=== PATIENT | female | born 1985 | race Caucasian/White ===

== ENCOUNTER 2017-11-24 08:17 | Outpatient (CLI) | payer OTHER | END 2017-11-24 08:18 | disposition home or self-care (01) | LOC: BICULT 08:17 | PROVIDERS: ATTEND Family Medicine | DX: Z34.92 Encounter for supervision of normal pregnancy, unspecified, second trimester (principal); Z3A.19 19 weeks gestation of pregnancy | CPT/HCPCS: 76805 ==

== ENCOUNTER 2018-04-09 20:00 | Inpatient (IN) | payer OTHER ==
--- NOTE | 2018-04-09 18:34 | HP ---
HISTORY OF PRESENT ILLNESS: This is a 33-year-old Latin-Bahamian female at 40 weeks gestation with an EDC of 04/10/2018. Her course has been uncomplicated. Over the past week, she has had occasional contractions off and on. She is requesting induction at this time. Questionable larg e baby. PAST MEDICAL HISTORY: Unremarkable. PAST SURGICAL HISTORY: None. ALLERGIES: PENICILLIN. FAMILY HISTORY: Unremarkable. 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 She is nonsmoker, nondrinker. She does have one 9-year-old child. REVIEW OF SYSTEMS: As above. PHYSICAL EXAMINATION: VITAL SIGNS: Stable, afebrile, blood pressure 126/72. HEENT: Clear. HEART: Clear. LUNGS: Clear. ABDOMEN: Gravid possible large baby. Cervix 2 days prior fingertip, thick, high vertex. EXTREMITIES: No edema. LABORATORY DATA: GBS negative. History of HSV, one hour GCT normal. HIV negative, GC chlamydia neg ative, Pap smear normal, HPV positive O positive blood type. Thyroid normal. Hepatitis B negative, rubella immune. ASSESSMENT: 1. Term , rule out large baby. 2. Obesity. 3. History of HSV, on antiviral medications. No recent outbreaks. PLAN: 1. Admit for an elective induction with Cytotec and Pitocin. 2. Routine L&D orders. 3. Routine anesthesia orders.
[~2018-04-09 20:00] MED LIST: Bupivacaine HCl 0.5%/Epinephrine 1:200,000/PF 30 ml Vial ONE; ePHEDrine/0.9% NaCl/PF SYRINGE 50 mg/10 ml ONE
[2018-04-09] MEDS ORDERED: Misoprostol 200 MCG TAB PR PRN (22:04)
[2018-04-09] MEDS ORDERED: Ondansetron PF 4 MG/2 ML Vial IVP PRN (22:04)
[2018-04-09] MEDS ORDERED: Butorphanol Tartrate 1 MG/ML VIAL SLOW IVP PRN (22:04)
[2018-04-09] MEDS ORDERED: NS / Oxytocin 40 units/1000ml 1,000 ML IV PRN (22:04)
[2018-04-09] MEDS ORDERED: Ibuprofen 800 MG TAB PO PRN (22:04)
[2018-04-09] MEDS ORDERED: Lidocaine 1% (PF) 30 ML VIAL SC PRN (22:04)
[2018-04-09] MEDS ORDERED: Acetaminophen 500 MG TAB PO PRN (22:04)
[2018-04-09] MEDS ORDERED: NS w/ Oxytocin 10 units 500 ML IV SCH (22:04)
[2018-04-09] MEDS ORDERED: Promethazine HCl 25 MG/ML VIAL IM PRN (22:04)
[2018-04-09] MEDS ORDERED: Zolpidem Tartrate 5 MG TAB PO PRN (22:04)
[2018-04-09] MEDS ORDERED: HYDROcodone/Acetaminophen 5/325 mg Tablet PO PRN (22:04)
[2018-04-09 22:29] VITALS: BMI 48.5
[2018-04-09] MEDS: Lactated Ringer's 1,000 ML IV SCH (22:50)
[2018-04-09 23:05] LABS: Hemoglobin 10.9 g/dL (12.0-16.0); Mean Corpuscular HGB CONC 32.6 g/dL (32.0-36.0); Mean Corpuscular Hemoglobin 28.3 pg (27.0-31.0); Mean Corpuscular Volume 86.9 fL (78.0-98.0); Mean Platelet Volume 9.2 fL (7.4-10.4); Platelet Count 216 thou/uL (130-400); RBC Distribution Width 13.8 % (11.5-14.5); Red Blood Cell (RBC) Count 3.86 mill/uL (4.20-5.40); White Blood Cell (WBC) Count 10.8 thou/uL (4.8-10.8)
[2018-04-09] MEDS: Misoprostol 100 MCG TAB VAG SCH (23:20)
[2018-04-09 23:47] LABS: HBSAg Index 0.22 S/CO (0-0.99); Hep B Surf Ag Non-Reactive S/CO (NonReactive); Syphilis Antibody Nonreactive (Nonreactive); Syphilis Antibody Index 0.04 S/CO (<1.00 Non-Reactive)
[2018-04-10] MEDS ORDERED: Fentanyl 4 mcg/Bup 0.1% Cadd 100 ML ONE (05:07)
[2018-04-10] MEDS ORDERED: Naloxone HCl 0.4 mg/ml Vial IVP PRN ×2 (05:56)
[2018-04-10] MEDS ORDERED: ePHEDrine/0.9% NaCl/PF SYRINGE 50 mg/10 ml SLOW IVP PRN (05:56)
[2018-04-10] MEDS ORDERED: Ondansetron PF 4 MG/2 ML Vial IVP PRN (05:56)
[2018-04-10] MEDS ORDERED: Acetaminophen 325 MG TAB PO PRN (05:56)
[2018-04-10] MEDS ORDERED: Lactated Ringer's 500 ML IV PRN (05:56)
[2018-04-10] MEDS ORDERED: diphenhydrAMINE 50 MG/ML VIAL IVP PRN (05:56)
[2018-04-10] MEDS ORDERED: Eucerin (Mineral Oil/Petrolatum,White) 30 gm Jar TOP PRN (05:56)
[2018-04-10] MEDS ORDERED: Promethazine HCl 25 MG/ML VIAL IM PRN (05:56)
[2018-04-10] MEDS ORDERED: Fentanyl 4 mcg/Bupivacaine 0.1% Cassette 100 ML EPIDURAL SCH (06:00)
[2018-04-10] MEDS ORDERED: Communication Order-Pharmacy FS SCH (06:00)
[2018-04-10] MEDS: Lactated Ringer's 1,000 ML IV SCH (06:28)
[2018-04-10] MEDS ORDERED: Misoprostol 200 MCG TAB ONE ×2 (10:59→11:00)
[2018-04-10] MEDS: Misoprostol 100 MCG TAB VAG SCH (11:08)
--- NOTE | 2018-04-10 14:06 | OP ---
PREOPERATIVE DIAGNOSIS: Term . POSTOPERATIVE DIAGNOSES: 1. Term . 2. Cord around the neck x2. PROCEDURE: Spontaneous vaginal delivery with repair of secondary midline episiotomy. ANESTHESIA: Epidural. PROCEDURE IN DETAIL: This 33-year-old Latin-Romanian female G2, P1 taken to delivery room, complete and pushing. Prepped and draped sterilely. Delivered a baby girl with Apgars 8 at 1 minute, 9 at 5 minutes. Baby did breathe and cry vigorously upon delivery. The placenta delivered spontaneously in tact. Secondary midline episiotomy was repaired with 3-0 chromic. Estimated blood loss was 350 mL. Mother and baby did well. There was some small amount of bleeding immediately post-delivery and Cyt otec 800 rectally was given. Mom and baby doing well at this time.
[2018-04-10] MEDS ORDERED: Adacel (T-DAP) 0.5 ML VIAL IM ONE (14:55)
[2018-04-10] MEDS ORDERED: NS / Oxytocin 40 units/1000ml 1,000 ML IV SCH (14:55)
[2018-04-10] MEDS ORDERED: Benzocaine/Menthol 20-0.5% 60 ML CAN TOP PRN (14:55)
[2018-04-10] MEDS ORDERED: Bisacodyl 10 MG SUPP PR PRN (14:55)
[2018-04-10] MEDS ORDERED: Milk Of Magnesia 30 ML UDCUP PO PRN (14:55)
[2018-04-10] MEDS: Ferrous Sulfate 325 MG TAB PO SCH (16:56)
[2018-04-10] MEDS: HYDROcodone/Acetaminophen 5/325 mg Tablet PO PRN ×2 (17:03→23:39)
[2018-04-10] MEDS: Docusate Calcium (SURFAK) 240 MG CAP PO SCH ×2 (21:48→21:52)
[2018-04-10] MEDS: Ibuprofen 800 MG TAB PO SCH (21:48)
[2018-04-11] MEDS: HYDROcodone/Acetaminophen 5/325 mg Tablet PO PRN ×4 (04:20→18:45)
[2018-04-11] MEDS: Ibuprofen 800 MG TAB PO SCH ×3 (05:31→21:20)
[2018-04-11] MEDS: Ferrous Sulfate 325 MG TAB PO SCH ×2 (07:06→14:45)
[2018-04-11] MEDS: Lactated Ringer's 1,000 ML IV SCH (07:35)
[2018-04-11] MEDS: Misoprostol 100 MCG TAB VAG SCH (07:35)
[2018-04-11] MEDS: Docusate Calcium (SURFAK) 240 MG CAP PO SCH ×2 (08:44→21:20)
[2018-04-12] MEDS: HYDROcodone/Acetaminophen 5/325 mg Tablet PO PRN ×2 (01:12→11:45)
[2018-04-12] MEDS: Ibuprofen 800 MG TAB PO SCH ×2 (06:17→14:17)
[2018-04-12] MEDS: Ferrous Sulfate 325 MG TAB PO SCH (07:17)
[2018-04-12 08:17] VITALS: BP 86/56; TEMP 97.9
[2018-04-12] MEDS: Docusate Calcium (SURFAK) 240 MG CAP PO SCH (09:17)
== END 2018-04-12 15:35 | disposition home or self-care (01) | DRG 806 ==
LOC: L&D 21:37 → 3SW 04-10 14:54
PROVIDERS: ADMIT Family Medicine; ATTEND Family Medicine
PROC: 10E0XZZ Delivery of Products of Conception, External Approach (ICD-10-PCS; principal; 2018-04-10)
PROC: 3E033VJ Introduction of Other Hormone into Peripheral Vein, Percutaneous Approach (ICD-10-PCS; 2018-04-10)
PROC: 0W8NXZZ Division of Female Perineum, External Approach (ICD-10-PCS; 2018-04-10)
DX: O36.63X0 Maternal care for excessive fetal growth, third trimester, not applicable or unspecified (principal); O98.52 Other viral diseases complicating childbirth; Z37.0 Single live birth; O99.214 Obesity complicating childbirth; E66.9 Obesity, unspecified; Z3A.40 40 weeks gestation of pregnancy; B00.9 Herpesviral infection, unspecified
CPT/HCPCS: 36415; 51702; 85027; 86780; 86850; 86900; 86901; 87340; J0670

== ENCOUNTER 2018-05-12 01:11 | Emergency (ER) | payer OTHER ==
[2018-05-12] MEDS ORDERED: Bupivacaine 0.25% 10 ML VIAL ONE (01:46)
== END 2018-05-12 02:07 | disposition home or self-care (01) ==
LOC: ERS 01:11
DX: K04.7 Periapical abscess without sinus (principal); F41.9 Anxiety disorder, unspecified
CPT/HCPCS: S0020

== ENCOUNTER 2018-05-12 11:57 | Emergency (ER) | payer OTHER ==
[2018-05-12] MEDS ORDERED: Ketorolac Tromethamine 30 MG/ML VIAL ONE (12:26)
[2018-05-12] MEDS ORDERED: Clindamycin/D5W 900 mg/50 ml Premix Bag ONE (12:29)
[2018-05-12 13:36] LABS: #Eosinphils 0.1 thou/uL (0.0-0.7); #Lymphocytes 1.2 thou/uL (1.20-3.40); #Monocytes 0.7 thou/uL (0.11-0.59); #Neutrophils 10.9 thou/uL (1.40-6.50); %Basophils 0.3 % (0.0-1.0); %Eosinophils 0.8 % (0.0-10.0); %Lymphocytes 9.3 % (21.0-51.0); %Monocytes 5.7 % (0.0-10.0); %Neutrophils 83.9 % (42.0-75.0); Hemoglobin 12.1 g/dL (12.0-16.0); Mean Corpuscular Hemoglobin 28.6 pg (27.0-31.0); Mean Corpuscular Volume 86.8 fL (78.0-98.0); Mean Platelet Volume 9.2 fL (7.4-10.4); Platelet Count 235 thou/uL (130-400); RBC Distribution Width 13.3 % (11.5-14.5); Red Blood Cell (RBC) Count 4.22 mill/uL (4.20-5.40)
[2018-05-12 13:51] LABS: ALT (SGPT) 12 U/L (8-55); AST (SGOT) 15 U/L (5-34); Albumin 3.9 g/dL (3.5-5.0); Alkaline Phosphatase 126 U/L (40-150); Anion Gap 11 mmol/L (10-20); BUN (Urea Nitrogen) 8 mg/dL (7.0-18.7); Bilirubin, Total 0.5 mg/dL (0.2-1.2); Calc. Creatinine Clearance 0 mL/min (70-130); Carbon Dioxide 23 mmol/L (22-29); Chloride 107 mmol/L (98-107); Estimated GFR-MDRD 90; Globulin 3.9 g/dL (2.4-3.5); Glucose 96 mg/dL (70-105); Potassium 4.1 mmol/L (3.5-5.1); Protein, Total 7.8 g/dL (6.0-8.3); Sodium 137 mmol/L (136-145)
[2018-05-12] MEDS ORDERED: Acetaminophen 500 MG TAB ONE (14:45)
== END 2018-05-12 16:33 | disposition home or self-care (01) ==
LOC: ERS 11:57
DX: K08.89 Other specified disorders of teeth and supporting structures (principal); R50.9 Fever, unspecified; F41.9 Anxiety disorder, unspecified; Z79.899 Other long term (current) drug therapy
CPT/HCPCS: 64400; 80053; 85025; 96361; 96365; 96375; J1885; J3490; S0020

== ENCOUNTER 2018-05-14 05:46 | Inpatient (IN) | payer OTHER ==
[2018-05-14 06:34] LABS: Mean Corpuscular HGB CONC 31.6 g/dL (32.0-36.0); Mean Corpuscular Hemoglobin 27.8 pg (27.0-31.0); Mean Corpuscular Volume 87.9 fL (78.0-98.0); Mean Platelet Volume 8.7 fL (7.4-10.4); Platelet Count 206 thou/uL (130-400); RBC Distribution Width 13.5 % (11.5-14.5); Red Blood Cell (RBC) Count 3.97 mill/uL (4.20-5.40); White Blood Cell (WBC) Count 22.7 thou/uL (4.8-10.8)
[2018-05-14] MEDS ORDERED: Clindamycin/D5W 600 mg/50 ml Premix Bag ONE (06:52)
[2018-05-14 07:00] LABS: Band 24 % (5-11); Lymphocytes 6 % (21-51); MDiff Complete? YES; Monocytes 4 % (0-10); Neutrophil 66 % (42-75)
[2018-05-14 07:24] LABS: ALT (SGPT) 11 U/L (8-55); AST (SGOT) 16 U/L (5-34); Albumin 3.5 g/dL (3.5-5.0); Alkaline Phosphatase 130 U/L (40-150); Anion Gap 17 mmol/L (10-20); BUN (Urea Nitrogen) 7 mg/dL (7.0-18.7); Bilirubin, Total 0.6 mg/dL (0.2-1.2); Calc. Creatinine Clearance 0 mL/min (70-130); Carbon Dioxide 18 mmol/L (22-29); Chloride 106 mmol/L (98-107); Estimated GFR-MDRD 89; Globulin 3.9 g/dL (2.4-3.5); Glucose 80 mg/dL (70-105); Potassium 3.7 mmol/L (3.5-5.1); Protein, Total 7.4 g/dL (6.0-8.3); Sodium 137 mmol/L (136-145)
--- NOTE | 2018-05-14 07:52 | RAD ---
PORTABLE UPRIGHT FRONTAL CHEST RADIOGRAPH: Date: 05/14/18 COMPARISON: None. HISTORY: Chest pain. FINDINGS: There is mild increased linear density in both lung bases, left greater than right, suggesting volume loss or, less likely, infiltrate. No pneumothorax, focal consolidation, alveolar edema, or large vol ume pleural effusion. IMPRESSION: Mild increased linear density in bilateral lung bases as above. POS: [facility]
[2018-05-14] MEDS ORDERED: Morphine 4 MG/ML VIAL ONE (07:53)
[2018-05-14] MEDS ORDERED: Dexamethasone 10 MG/ML VIAL ONE (08:13)
[2018-05-14 08:22] LABS: Bilirubin Small (Negative); Blood, Urine Small (Negative); Clarity CLOUDY (Clear); Glucose, Urine (Dipstick) Negative (Negative); Leukocyte Negative (Negative); Nitrite Negative (Negative); Protein, Urine (Dipstick) 100 mg/dL (Neg-Trace); Specific Gravity, Urine 1.026 (1.002-1.036); pH, Urine 5.5 (5.0-9.0)
[2018-05-14 08:24] LABS: Bacteria/HPF 1+ HPF (None Seen); Hyaline Casts/LPF 7-10 HYALINE CAST LPF (0-3 Hyaline); Pathc Cast-AUWi Flag 1.45 (0-2.49)
[2018-05-14 08:34] LABS: Pregnancy Test - Urine (BHCG) Negative (Negative); Specific Gravity 1.026 (1.002-1.036)
[2018-05-14 08:35] LABS: Pregu Control Background? CLEAR/WHITE (CLR/WHITE); Pregu Control Bar Appear? YES (CONTROL BAR)
--- NOTE | 2018-05-14 10:05 | CT ---
CT NECK WITH IV CONTRAST: Date: 05/14/18 COMPARISON: None. HISTORY: Dental pain and facial swelling. TECHNIQUE: Axial CT imaging is obtained at 2.5 mm intervals from skull base through lung apices with IV contrast . Coronal and sagittal reformatted imaging obtained. FINDINGS: The imaged paranasal sinuses and mastoid air cells are well aerated. Mild mucosal thickening of the a lveolar recess of bilateral maxillary sinuses. The retroantral fat and the parapharyngeal fat appears clear bilaterally. The parotid gland and submandibular gland on the left appear unremarkable. There is mild edematous change involving the parotid gland on the left, particularly inferiorly. The submandibular gland appears abnormal on the right in that it is enlarged and heterogeneous with i nternal striated areas of hypodensity. In addition, inferior to and medial to the submandibular gland on the right is linear hypodensities suggesting developing phlegmon/abscess, which abuts the anterio r right lateral aspect of the hyoid bone. There is diffuse thickening of the platysma inferiorly, lef t greater than right, with marked inflammatory fat stranding of the subcutaneous fat in the submandib ular region, right greater than left, both superficial and deep to the platysma. Evaluation of the oral cavity is limited on the basis of streak artifact from dental amalgam. No disc rete sialolith noted. There is no enlargement of either palatine tonsil. The epiglottis demonstrates mild edematous change along its right lateral portion. There is inflammatory change in the preepiglottic fat. There is jessi a of the mucosa anteriorly, right laterally, and posteriorly at the axial level of the hyoid bone, co nsistent with supraglottic extensive inflammatory change. There is inflammatory fluid extending into the carotid space on the right from the axial level of the hyoid bone through the axial level of the thyroid gland, and there is abnormal retropharyngeal fluid which extends from the C2 level through th e C5-6 level, which could represent a developing retropharyngeal abscess. The thyroid gland itself is unremarkable. There is stranding of the fat within the mediastinum just inferior to the thyroid glan d, which may represent developing mediastinitis. There is inflammatory change involving the strap mus cles bilaterally. The visualized lung apices are unremarkable. The osseous structures demonstrate no discrete lytic or blastic bone lesion. The vascular structures appear patent. Multiple mildly enlarged lymph nodes are seen throughout the neck bilaterally, including Level II and Level V. There is lucency involving the second from the posterior most left mandibular molar. In addition, the posterior most right mandibular tooth demonstrates a prominent dental caries and the posterior two r ight mandibular teeth demonstrate periapical abscess formation. IMPRESSION: Marked inflammatory change noted centered in the region of the submandibular gland with superior, med ial, and inferior extension. There is inflammatory change which involves the fat in the submandibular region, right greater than left, deep and superficial to the platysma, with probably multiloculated submandibular abscess. There is extension into the supraglottic airway with narrowing of the supraglo ttic airway at the axial level of the hyoid bone. This extends into the carotid space on the right, t he retropharyngeal space, and probably the mediastinum, concerning for infection extending into these regions. Exact etiology is uncertain. This may be odontogenic in nature. Follow up CT advised following treatment to document resolution. Results were called to Dr. Donald at 0925 hours on 05/14/18. CODE CR. POS: [facility]
[2018-05-14] MEDS ORDERED: ISOVUE-370 76%-LOCM 1 ML ONE (10:47)
[2018-05-14] MEDS ORDERED: Clindamycin/D5W 900 MG in Premix Bag 1 BAG IVPB SCH ×2 (12:00→14:00)
[2018-05-14] MEDS ORDERED: Succinylcholine Chloride 20 MG/ML 10 ml SYRINGE FS ONE (12:07)
[2018-05-14] MEDS ORDERED: PHENYLEPHRINE-NS 100 MCG/ML 10 ML SYRINGE ONE (12:07)
[2018-05-14] MEDS ORDERED: Lidocaine 1% PF 5 ML VIAL ONE (12:07)
[2018-05-14] MEDS ORDERED: Dexamethasone 20 MG/5 ML VIAL ONE (12:07)
[2018-05-14] MEDS ORDERED: Glycopyrrolate 0.2 MG/ML 5 ML SYRINGE ONE (12:07)
[2018-05-14] MEDS ORDERED: Ondansetron PF 4 MG/2 ML Vial ONE (12:07)
[2018-05-14] MEDS ORDERED: PROPOFOL 200 MG/20 ML VIAL ONE (12:07)
[2018-05-14] MEDS ORDERED: Ondansetron PF 4 MG/2 ML Vial IVP PRN (12:27)
[2018-05-14] MEDS ORDERED: VANCOMYCIN IVPB PRN (12:58)
[2018-05-14] MEDS: Sodium Chloride 0.9% 1,000 ML IV SCH ×2 (15:02→16:07)
[2018-05-14] MEDS: Vancomycin HCl 1.5 GM in Sodium Chloride 0.9% 250 ML 300 ML IVPB SCH (16:58)
[2018-05-14] MEDS ORDERED: Fentanyl 100 MCG/2 ML VIAL ONE ×4 (18:39→21:24)
[2018-05-14] MEDS ORDERED: Midazolam HCl 2 mg/2 ml Vial ONE (18:39)
[2018-05-14] MEDS ORDERED: Hydrocortisone 1% Cream 30 GM TUBE ONE (18:43)
[2018-05-14] MEDS ORDERED: Lidocaine 1% w/Epinephrine 1:100K 30 ML VIAL ONE (18:43)
[2018-05-14] MEDS ORDERED: Chlorhexidine Gluconate 15 ML UDCUP SSP ONE (18:43)
[2018-05-14] MEDS ORDERED: Oxymetazoline HCl 0.05% ( 15 ML ) ONE (19:13)
[2018-05-14] MEDS ORDERED: Lidocaine 4% Topical Sol 50 ML BOT ONE (19:13)
[2018-05-14] MEDS ORDERED: SUGAMMADEX SODIUM 200 MG/2 ML VIAL ONE (20:03)
[2018-05-14] MEDS ORDERED: Promethazine HCl 25 MG/ML VIAL IM PRN (20:19)
[2018-05-14] MEDS ORDERED: Ondansetron HCl/PF 4 MG/2 ML Vial IVP PRN (20:19)
[2018-05-14] MEDS ORDERED: Promethazine HCl 25 MG/ML VIAL SLOW IVP PRN (20:19)
--- NOTE | 2018-05-14 20:41 | HP ---
HISTORY OF PRESENT ILLNESS: This is a 33-year-old female, G2, P2, who presents with neck swelling. The patient was doing well until Friday when she developed a sore throat. She then presented to the ER on Friday and was given antibiotics and told to come back if things became worse. She then began developing neck swelling which became progressively worse and quite extensive. She was developing fever of approximately 102. At this time, she is in severe pain with marked swelling of her neck. Dr. Mccarty and Dr. Mace had been called. PAST MEDICAL HISTORY: Unremarkable. PAST SURGICAL HISTORY: None. She has had two normal vaginal deliveries. FAMILY HISTORY: Unremarkable for any other diabetes, cancer, or heart disease. SOCIAL HISTORY: She is single. 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 She has a 9-year-old and a baby, who I believe is approximately 1-month-old. She does not smoke. She does not drink. MEDICATIONS: Vitamins daily. ALLERGIES: PENICILLIN. REVIEW OF SYSTEMS: As above. PHYSICAL EXAMINATION: VITAL SIGNS: Temperature 103, 100.2, blood pressure 110/70, heart rate 103. GENERAL: The patient is in moderate distress from the neck swelling. HEENT: Difficult oral exam due to swelling and decreased ability to open her mouth. TMs are clear. NECK: Quite swollen with some marked tenderness. HEART: Regular rate and rhythm. No murmurs noted. LUNGS: Clear. ABDOMEN: Soft, nontender. EXTREMITIES: No edema. LABORATORY DATA: White count 22.7, H and H 11 and 34, platelets 206, sodium 137, potassium 3.7, lactic acid 1.5. Urine with 4+ ketones, specific gravity 1.026. CT of the neck shows marked swelling with abscess, unsure if it originates from the submandibular gland or dental. ASSESSMENT: 1. Neck abscess. Rule out submandibular origin versus dental. 2. One month status post vaginal delivery. PLAN: 1. Dr. Mccarty and Dr. Mace consulted. 2. N.p.o. 3. Clindamycin and vancomycin started. 4. Admit to Tele. 5. Pain control. 6. We will continue to follow. Job ID: [id number]
[2018-05-14] MEDS ORDERED: Vancomycin HCl 1 GM in Premix Bag 1 BAG IVPB SCH (21:00)
--- NOTE | 2018-05-14 21:22 | CON ---
DATE OF CONSULTATION: TYPE OF CONSULTATION: Inpatient consultation. CHIEF COMPLAINT: Facial pain, swelling. HISTORY OF PRESENT ILLNESS: This is a 33-year-old female with a several month history of intermittent right jaw pain and swelling, has significant worsening of this pain and swelling over the last 2 days, failed a previous outpatient antibiotic therapy. The patient has been complaining of tooth pain. She does complain of some difficulty swallowing. No difficulty breathing. Pain is mostly on the right of her jaw and neck and right throat. PAST MEDICAL HISTORY: None. PAST SURGICAL HISTORY: The patient gave on April 10. SOCIAL HISTORY: The patient denies alcohol, tobacco, drug abuse. She works at [email or web address]. PHYSICAL EXAMINATION: VITAL SIGNS: Blood pressure is 97/60, pulse is 92, respiratory rate is 12. She is saturating 99% on room air currently. T-max is 103. GENERAL: The patient is awake, alert, and oriented x3. She is no acute distress, but does appear quite uncomfortable due to the pain of her jaw and neck. HEENT: She has good oral opening. She has a decayed tooth #31, which is tender to palpation. She also has an impacted tooth #32 distal to that. She also has a tenderness to palpation in the floor of the mouth on the right side as well as the right neck extending to the midline and some over into the left. The neck is not fluctuant. It is firm, woody. There is no real elevation of the tongue or floor of mouth. The oropharynx does appear clear. I do not see any gross uvular deviation. Her oral hygiene is poor. LABORATORY DATA: White count 20,000. CT scan of the neck with IV contrast shows possible phlegmon in the right deep neck spaces with some airway shift to the left. She has a necrotic tooth #31 with a periapical radiolucency in that area, which breaks through the lingual cortical plate. She also has another periapical radiolucency around tooth #18. ASSESSMENT: 1. A 33-year-old female with deep neck space abscess, mostly likely from tooth #31, dental caries and abscess. 2. Sepsis. PLAN: The patient is being admitted to the Family Medicine Service. They are currently on vancomycin and clindamycin, which we would like to continue. IV fluids per primary team as well. I will plan on taking the patient to the OR this evening for removal of tooth #31 and any other indicated teeth as well as incision and drainage of deep neck spaces. Job ID: [id number]
[2018-05-14] MEDS: Clindamycin/D5W 900 MG in Premix Bag 1 BAG IVPB SCH (21:55)
[2018-05-14] MEDS: Famotidine/PF 20 mg/2ml Vial SLOW IVP SCH (22:27)
[2018-05-14] MEDS: Morphine 4 MG/ML VIAL SLOW IVP PRN (22:28)
[2018-05-15] MEDS: Vancomycin HCl 1.5 GM in Sodium Chloride 0.9% 250 ML 300 ML IVPB SCH ×4 (00:12→16:50)
[2018-05-15] MEDS: Sodium Chloride 0.9% 1,000 ML IV SCH ×3 (02:15→11:37)
[2018-05-15] MEDS: Clindamycin/D5W 900 MG in Premix Bag 1 BAG IVPB SCH ×4 (02:20→20:13)
[2018-05-15] MEDS: Morphine 4 MG/ML VIAL SLOW IVP PRN ×2 (02:31→08:15)
[2018-05-15 06:33] LABS: Anion Gap 12 mmol/L (10-20); BUN (Urea Nitrogen) 9 mg/dL (7.0-18.7); Calc. Creatinine Clearance 224 mL/min (70-130); Calcium 8.4 mg/dL (7.8-10.44); Carbon Dioxide 15 mmol/L (22-29); Chloride 114 mmol/L (98-107); Estimated GFR-MDRD Greater than 90; Glucose 122 mg/dL (70-105); Sodium 137 mmol/L (136-145)
[2018-05-15 06:51] LABS: Band 39 % (5-11); Hemoglobin 9.5 g/dL (12.0-16.0); Lymphocytes 4 % (21-51); MDiff Complete? YES; Mean Corpuscular Hemoglobin 27.5 pg (27.0-31.0); Mean Corpuscular Volume 88.4 fL (78.0-98.0); Mean Platelet Volume 8.8 fL (7.4-10.4); Neutrophil 57 % (42-75); Platelet Count 226 thou/uL (130-400); RBC Distribution Width 13.5 % (11.5-14.5); Red Blood Cell (RBC) Count 3.44 mill/uL (4.20-5.40); White Blood Cell (WBC) Count 20.5 thou/uL (4.8-10.8)
[2018-05-15] MEDS: Famotidine/PF 20 mg/2ml Vial SLOW IVP SCH (08:15)
--- NOTE | 2018-05-15 11:34 | OP ---
DATE OF PROCEDURE: 05/14/2018 PREOPERATIVE DIAGNOSES: Necrotic decayed teeth #31, #32 and #18. Right submandibular abscess, right sublingual abscess and right vestibular space abscess associated with teeth #31 and #32. PROCEDURES PERFORMED: Incision and drainage of right submandibular abscess, intraoral and extraoral; right sublingual abscess, intraoral and extraoral; right vestibular space abscess, intraoral. Simple extraction of teeth #31 and #32. Surgical removal of tooth #18. COMPLICATIONS: None. DRAINS: A 1/2-inch Lashanda drain was placed from the right submandibular area of the neck through the right submandibular space, the sublingual space and into the oral cavity. It was secured with a 2-0 Prolene stitch at the skin. This drain was through and through. ESTIMATED BLOOD LOSS: 20 mL. ANESTHESIA: General endotracheal anesthesia with nasal FABIO. COMPLICATIONS: None. SPECIMENS: Purulent culture from submandibular space was sent for gram stain culture. BRIEF PATIENT HISTORY AND PROCEDURE IN DETAIL: This is a 33-year-old female with a several week history of swelling, worsening over the last 2 days, admitted for sepsis and the above noted abscesses, taken to the operating room, prepped and draped in sterile fashion. A nasal tube was placed prior. Throat pack was placed. Oropharynx was suctioned. Mouth irrigated with normal saline. Teeth #31 and #32 were removed with forceps extraction. Pus was noted from the sockets. Sockets were curetted. Full-thickness mucoperiosteal flap was made with sulcular degloving incision on the buccal and lingual of #31 and #32. Pus in the sublingual space was found as well as in the right vestibular space. These areas were thoroughly irrigated. Incision was then made approximately 2 cm below the right inferior border of the mandible and the neck. Incision with a 15 blade through skin, subcutaneous tissue, and platysma with blunt dissection into the superficial layer of deep cervical fascia and into the submandibular space with jerry purulent discharge. A through and through drain was then placed, a 1/2-inch Lashanda from the right submandibular sublingual area exiting the neck and going through and through into the oral cavity. It was secured in place with a 2-0 Prolene to the skin. Areas were thoroughly irrigated. Bite block was then changed from the left side to the right side. Full-thickness mucoperiosteal flap was made around tooth #18. Tooth was drilled, sectioned, elevated, curetted of large granuloma, normal saline and 4-0 chromic closure. The patient tolerated the procedure well. Job ID: [id number]
--- NOTE | 2018-05-15 12:56 | PQF ---
CLINICAL DOCUMENTATION IMPROVEMENT CLARIFICATION FORM: ICD-10 Updated PLEASE DO AN ADDENDUM TO THE PROGRESS NOTE WITH ANY DOCUMENTATION UPDATES OR ADDITIONS AND CARRY THROUGH TO DC SUMMARY. THANK YOU. DATE: 05/15/18 ATTN: DR. REEVES Please exercise your independent, professional judgment in responding to the clarification form. Clinical indicators are provided on the bottom of this form for your review Please check appropriate box(s) to clarify if the following diagnosis has been ruled in or ruled out: SEPSIS [ ] Ruled in diagnosis [ ] Continue to treat [ ] Resolved [ ] Ruled out diagnosis [ ] Cannot rule out diagnosis [ ] Other diagnosis [ ] Unable to determine In addition, please specify: Present on Admission (POA): [ ] Yes [ ] No [ ] Unable to determine For continuity of documentation, please document condition throughout progress notes and discharge summary. Thank You. CLINICAL INDICATORS - SIGNS / SYMPTOMS / LABS ER NOTE: "SEPSIS" OP NOTE (ORAL SURGERY): "ADMITTED FOR SEPSIS" BP 92/63 PULSE 125 RR 28 TEMP 103.1 WBC 22.7 BANDS 39 RISKS: ORAL ABSCESSES TREATMENT: IV CLINDAMYCIN (ER) IV VANCOMYCIN (ER) IV FLUIDS (ER) ENT CONSULT ORAL SURGERY CONSULT IMCU MONITORING URINE AND BLOOD CULTURES BACTERIAL CULTURES OF NECK ABSCESS EXTRACTION OF TEETH I&D OF ORAL ABSCESSES (This form is maintained as a part of the permanent medical record) 2014 [employer]. All Rights Reserved [email or web address] [email or web address] Office: [phone] [facility]
--- NOTE | 2018-05-15 14:02 | PRG ---
DATE OF SERVICE: 05/15/2018 SUBJECTIVE: The patient is feeling a lot better. Her fever has resolved. She only complains of postop pain. She is tolerating some clear liquids. OBJECTIVE: VITAL SIGNS: Temperature 99.8, pulse 65, respiration 16, pulse ox 94, blood pressure 146/59. HEENT: Neck swelling has significantly reduced. Drain from the right jaw is still present. The patient looks so much better this morning. HEART: Regular rate and rhythm. LUNGS: Clear. LABORATORY DATA: White count 22.7 down to 20.5, H and H 9.5 and 30.5, CO2 is 15, creatinine 0.65, glucose 122. ASSESSMENT: 1. Postoperative day #1, status post removal of several teeth. 2. Incision and drainage of right submandibular, sublingual, and vestibular spaces with placement of a drain. Cultures pending. Bacterial urine cultures are pending. PLAN: 1. Continue postoperative day care. 2. Increase activity. 3. May hold Lovenox for another day. 4. Continue IV vancomycin and clindamycin. Job ID: [id number]
[2018-05-15 15:49] LABS: Vancomycin, Trough 19.4 ug/mL
[2018-05-15] MEDS: Chlorhexidine Gluconate 15 ML UDCUP SSP SCH (22:08)
[2018-05-16] MEDS: Vancomycin HCl 1.25 GM in Sodium Chloride 0.9% 250 ML 250 ML IVPB SCH ×3 (00:24→15:45)
[2018-05-16] MEDS: Morphine 2 MG/ML SYRINGE SLOW IVP PRN ×4 (00:31→18:07)
--- NOTE | 2018-05-16 00:54 | CON ---
DATE OF CONSULTATION: 05/15/2018 SERVICE: Pulmonary Medicine. HISTORY OF PRESENT ILLNESS: The patient is a 33-year-old female with past medical history significant for essentially nothing. She presented to the hospital with pain and swelling in the right jaw. She had some difficulty breathing that was associated with the obstruction. She was also having some high fevers. She presented to the emergency department and was discovered to have a submandibular abscess. She underwent surgical intervention. She has a drain in place. She is no longer having any fevers or chills or breathing difficulties. She was brought down to the ICU last night because her blood pressures were quite soft. She ended up getting 4 L of fluid. After the fluid resuscitation, her blood pressures firmed up very nicely. She is tolerating p.o. at this time. There has been no interval change to her condition. PAST MEDICAL HISTORY: None. PAST SURGICAL HISTORY: I and D of right submandibular abscess and extraction of tooth #31, #32, and #18. FAMILY HISTORY: Noncontributory. SOCIAL HISTORY: Negative for alcohol, tobacco, or illicit drug use. She has no exposure to chemicals, dust, asbestos, or tuberculosis. ALLERGIES: PENICILLIN. MEDICATIONS: List of her inpatient medications was reviewed. No specific updates were made. REVIEW OF SYSTEMS: General, head, ears, eyes, nose, throat, cardiovascular, respiratory, genitourinary, musculoskeletal, neurologic, and skin are negative except as mentioned in the HPI. PHYSICAL EXAMINATION: VITAL SIGNS: Afebrile with a T-max of 99.8, pulse 61, blood pressure 118/54, respirations 17, saturation 94% on room air. GENERAL: The patient is awake, alert, in no apparent distress. LUNGS: Excellent air entry. There is no prolonged expiratory phase or wheezing present. Dependently, minimal crackles are present. HEART: Normal rate and regular. ABDOMEN: Soft, nontender, and nondistended. Bowel sounds are positive. MUSCULOSKELETAL: No cyanosis or clubbing. There is trace pitting in the bilateral lower extremities. NEUROLOGIC: Grossly nonfocal. LABORATORY DATA: WBC 20.5, hemoglobin 9.5, and platelets 226,000, band count is up trending to 39%. Basic metabolic profile is unremarkable. Liver function studies are unremarkable. Lactate is negative. Urinalysis is positive for ketones and small amount of blood. She does not have any glycosuria. There is minimal proteinuria present. Vancomycin trough is 19.4. All culture results are negative to date. IMAGING DATA: Soft-tissue CT of the neck demonstrates a large right-sided submandibular abscess. Chest x-ray demonstrates no acute cardiopulmonary abnormality. ASSESSMENT: 1. Submandibular abscess with extension into the retropharyngeal space, possibly involving mediastinum. 2. Sepsis without end-organ damage. DISCUSSION AND PLAN: The patient is not having any difficulty swallowing right now. Additionally, she has no problems with shortness of breath. She does not have anything that even remotely sounds like stridor. As such, we will transition her out of the ICU to the medical unit. If she has any significant chest discomfort , clinical correlation for mediastinitis may need to be considered. Otherwise, supportive care including antibiotics will be continued. We will transition her out of the ICU to the surgical unit. Once there, she will not have additional requirements for pulmonary or critical care opinion, and I will sign off. Please call with additional questions or concerns. 70 minutes have been devoted to this patient in various activities. I personally reviewed all imaging studies and laboratory data noted within this document. For fifty percent of this time, I was interacting with the patient at the bedside or coordinating care with the care team. For the remainder of the time I was immediately available to the patient in the hospital unit. Job ID: [id number] [facility]
[2018-05-16] MEDS: Clindamycin/D5W 900 MG in Premix Bag 1 BAG IVPB SCH ×4 (02:37→20:23)
[2018-05-16] MEDS: Chlorhexidine Gluconate 15 ML UDCUP SSP SCH ×2 (08:04→20:23)
[2018-05-16] MEDS: HYDROcodone/Acetaminophen 7.5/325 mg Tablet PO PRN (14:31)
[2018-05-16 16:04] LABS: Vancomycin, Trough 23.1 ug/mL
[2018-05-16] MEDS ORDERED: Ketorolac Tromethamine 30 MG/ML VIAL IVP SCH (18:45)
[2018-05-16 19:18] LABS: #Lymphocytes 2.5 thou/uL (1.20-3.40); #Monocytes 1.3 thou/uL (0.11-0.59); %Basophils 0.2 % (0.0-1.0); %Eosinophils 0.2 % (0.0-10.0); %Lymphocytes 13.9 % (21.0-51.0); %Monocytes 7.3 % (0.0-10.0); %Neutrophils 78.5 % (42.0-75.0); Hemoglobin 10.8 g/dL (12.0-16.0); Mean Corpuscular HGB CONC 32.1 g/dL (32.0-36.0); Mean Corpuscular Hemoglobin 27.9 pg (27.0-31.0); Mean Corpuscular Volume 86.8 fL (78.0-98.0); Mean Platelet Volume 8.4 fL (7.4-10.4); Platelet Count 255 thou/uL (130-400); RBC Distribution Width 13.6 % (11.5-14.5); Red Blood Cell (RBC) Count 3.87 mill/uL (4.20-5.40); White Blood Cell (WBC) Count 17.9 thou/uL (4.8-10.8)
[2018-05-17] MEDS: Ketorolac Tromethamine 30 MG/ML VIAL IVP SCH ×3 (00:26→11:01)
--- NOTE | 2018-05-17 00:30 | PRG ---
DATE OF SERVICE: 05/16/2018 HISTORY OF PRESENT ILLNESS: The patient is status post removal of several teeth and incision and drainage of submandibular abscess per Oral Maxillofacial Surgery, drain left in place with a bulky gauze dressing, which is not soaked through this morning. The patient is in quite a bit of pain and is somewhat struggling to tolerate full liquids this morning. The patient verbalizes understanding of good prognosis going forward, tolerating antibiotics well and no other acute complaints. PHYSICAL EXAMINATION: VITAL SIGNS: Temperature of 98.1, pulse of 69, respiratory rate of 20, oxygen saturation 96% on room air. Blood pressure of 116/79. GENERAL: The patient is alert and oriented, in mild distress, pain to jaw. HEENT: Head is normocephalic, atraumatic. Extraocular movements are intact. Sclerae white. Bulky gauze bandage to right mandible and submandibular area intact. NECK: The patient's neck is somewhat stiff, painful to move secondary to surgical site. HEART: Regular rate and rhythm. No murmurs are auscultated. LUNGS: Clear to auscultation bilaterally. No rubs or wheezes. ABDOMEN: Soft, nontender, positive bowel sounds throughout. EXTREMITIES: Lower extremities without cyanosis or edema. NEUROLOGIC: The patient is alert and oriented x 3. No focal deficits. Speech is normal. LABORATORY DATA: White blood cell count 17.9, hemoglobin postoperatively 10.8, sodium of 137 and creatinine of 0.65 yesterday. Vancomycin trough this afternoon of 23.1. Blood and urine cultures negative and were mixed moises to urine culture. Wound culture currently pending. ASSESSMENT AND PLAN: Submandibular abscess. The patient continued on clindamycin, vancomycin, status post surgical intervention with drain in place. The patient's pain has been covered by hydrocodone 7.5 mg one tablet q.4 hours p.r.n. along with IV 2 mg every 2 hours p.r.n. pain. The patient additionally had up to 4 doses of IV ketorolac on top of that for breakthrough pain. We will follow with renal function in the morning while the patient remains on vancomycin trough as appropriate. Drain in place. We will follow up on Surgery's recommendations. The patient is making slow progress. Continue on full-liquid diet at this point in time. Job ID: [id number]
[2018-05-17] MEDS: Clindamycin/D5W 900 MG in Premix Bag 1 BAG IVPB SCH ×4 (03:00→21:02)
[2018-05-17] MEDS: Vancomycin HCl 1.25 GM in Sodium Chloride 0.9% 250 ML 250 ML IVPB SCH ×2 (05:30→15:22)
[2018-05-17] MEDS: Chlorhexidine Gluconate 15 ML UDCUP SSP SCH ×2 (07:48→21:06)
[2018-05-17 09:22] LABS: Band 14 % (5-11); Eosinophils 2 % (0-10); Hemoglobin 10.3 g/dL (12.0-16.0); Lymphocytes 11 % (21-51); MDiff Complete? YES; Mean Corpuscular HGB CONC 33.1 g/dL (32.0-36.0); Mean Corpuscular Hemoglobin 28.3 pg (27.0-31.0); Mean Corpuscular Volume 85.6 fL (78.0-98.0); Mean Platelet Volume 8.7 fL (7.4-10.4); Monocytes 7 % (0-10); Neutrophil 66 % (42-75); Platelet Count 240 thou/uL (130-400); RBC Distribution Width 13.6 % (11.5-14.5); Red Blood Cell (RBC) Count 3.64 mill/uL (4.20-5.40); White Blood Cell (WBC) Count 11.2 thou/uL (4.8-10.8)
[2018-05-17 09:26] LABS: Anion Gap 11 mmol/L (10-20); BUN (Urea Nitrogen) 11 mg/dL (7.0-18.7); Calc. Creatinine Clearance 232 mL/min (70-130); Calcium 8.1 mg/dL (7.8-10.44); Carbon Dioxide 23 mmol/L (22-29); Chloride 107 mmol/L (98-107); Estimated GFR-MDRD Greater than 90; Glucose 90 mg/dL (70-105); Potassium 3.3 mmol/L (3.5-5.1); Sodium 138 mmol/L (136-145)
[2018-05-17] MEDS: D5 1/2 NS w/20 mEq KCL 1,000 ML IV SCH ×2 (11:02→16:59)
[2018-05-17] MEDS: HYDROcodone/Acetaminophen 7.5/325 mg Tablet PO PRN ×2 (16:56→21:14)
[2018-05-17] MEDS: Morphine 2 MG/ML SYRINGE SLOW IVP PRN (19:24)
[2018-05-18] MEDS: Morphine 4 MG/ML VIAL SLOW IVP PRN ×4 (00:31→23:25)
[2018-05-18] MEDS: D5 1/2 NS w/20 mEq KCL 1,000 ML IV SCH ×3 (00:32→20:17)
--- NOTE | 2018-05-18 01:11 | PRG ---
DATE OF SERVICE: 05/17/2018 SUBJECTIVE: The patient continues to have significant pain, barely tolerating any oral intake, has blown several IVs, but still has current IV access with IV fluids running to compensate. The patient is urinating well. Did spike fever. Microbiology did come back with multiple organisms of concern including alpha hemolytic and coagulase negative strep and Staph respectively and nonhemolytic strep. Corynebacterium species x3 and Haemophilus influenzae type B susceptibilities are pending. OBJECTIVE: VITAL SIGNS: Temperature of 100.6 this evening, pulse of 87, respiratory rate of 18, oxygen saturation of 98% on room air, and blood pressure of 109/76. HEENT: Head is normocephalic, atraumatic. Extraocular movements are intact. Sclerae white. Oral mucosa is moist. Right jaw line with bandage intact, painful to touch. NECK: Somewhat stiff. HEART: Regular rate and rhythm at the time of exam. No murmurs are auscultated. LUNGS: Clear to auscultation bilaterally. No rubs or wheezes. ABDOMEN: Protuberant, soft, nontender, positive bowel sounds throughout. EXTREMITIES: Lower extremities without cyanosis or edema. NEUROLOGIC: The patient is alert and oriented x3. No focal deficits. Speech is normal. LABORATORY DATA: White blood cell count of 11.2. Creatinine of 0.63. ASSESSMENT AND PLAN: Submandibular abscess with signs of sepsis present from admission, secondary to polymicrobial infection, following up on susceptibilities, continuing on vancomycin and clindamycin, adding Levaquin secondary agent towards Haemophilus influenzae B and corynebacterium species. The patient with difficulty swallowing, continuing to support on IV fluids. We will handoff to Dr. Edilson Ramesh in the morning. Oral Maxillofacial Surgery did continue to follow. Job ID: [id number] [facility]
[2018-05-18] MEDS: HYDROcodone/Acetaminophen 7.5/325 mg Tablet PO PRN ×5 (02:22→21:18)
[2018-05-18] MEDS: Clindamycin/D5W 900 MG in Premix Bag 1 BAG IVPB SCH ×4 (02:24→20:09)
[2018-05-18] MEDS ORDERED: Vancomycin HCl 1.25 GM in Sodium Chloride 0.9% 250 ML 250 ML IVPB SCH (04:00)
[2018-05-18 04:40] LABS: Band 10 % (5-11); Eosinophils 3 % (0-10); Lymphocytes 19 % (21-51); MDiff Complete? YES; Mean Corpuscular HGB CONC 33.5 g/dL (32.0-36.0); Mean Corpuscular Hemoglobin 28.4 pg (27.0-31.0); Mean Corpuscular Volume 84.9 fL (78.0-98.0); Monocytes 8 % (0-10); Myelocyte 1 % (0-0); Neutrophil 59 % (42-75); Nucleated RBC 1 % (0); Platelet Count 247 thou/uL (130-400); RBC Distribution Width 13.7 % (11.5-14.5); White Blood Cell (WBC) Count 12.2 thou/uL (4.8-10.8)
[2018-05-18 04:42] LABS: Vancomycin, Trough 9.5 ug/mL
[2018-05-18 04:44] LABS: Anion Gap 11 mmol/L (10-20); BUN (Urea Nitrogen) 7 mg/dL (7.0-18.7); Calc. Creatinine Clearance 243 mL/min (70-130); Calcium 8.1 mg/dL (7.8-10.44); Carbon Dioxide 24 mmol/L (22-29); Chloride 103 mmol/L (98-107); Estimated GFR-MDRD Greater than 90; Glucose 103 mg/dL (70-105); Potassium 3.3 mmol/L (3.5-5.1); Sodium 135 mmol/L (136-145)
[2018-05-18] MEDS: Vancomycin HCl 1.5 GM in Sodium Chloride 0.9% 250 ML 300 ML IVPB SCH ×2 (05:15→16:53)
[2018-05-18] MEDS ORDERED: Vancomycin HCl 1 GM in Premix Bag 1 BAG IVPB SCH ×2 (06:00→08:00)
[2018-05-18] MEDS: Polyethylene Glycol 3350 17 GM Packet PO SCH (08:09)
[2018-05-18] MEDS: Chlorhexidine Gluconate 15 ML UDCUP SSP SCH ×2 (08:29→20:09)
--- NOTE | 2018-05-18 13:38 | CON ---
DATE OF CONSULTATION: SUBJECTIVE: The patient is slowly improving, still in moderate pain, taking pain meds regularly. No bowel movements since several days. However, she does state she is slowly improving. OBJECTIVE: VITAL SIGNS: Temperature 97.8, pulse 77, respiration 16, pulse ox 96%, blood pressure 106/71. HEART: Regular rate and rhythm. LUNGS: Clear. ABDOMEN: Soft. HEENT: Marked decrease in neck swelling since last seen, still with some drainage in her neck. LABORATORY DATA: White count 12.2, H and H 10 and 29, sodium 135, potassium 3.3, creatinine 0.6. ASSESSMENT: 1. Postoperative day #4, status post I and D of the neck. 2. Neck abscess. 3. Blood cultures negative. 4. Abscess cultures show multiple species to include Haemophilus, strep and Corynebacterium. Haemophilus appears to be predominant species. However, multiple species are present. PLAN: 1. Continue vancomycin, clindamycin, and Levaquin. 2. Increase activity today. 3. Dietary consult. Also add Ensure t.i.d. 4. Encourage the patient to ambulate. We will also add MiraLax to aid in bowel movements. Job ID: [id number]
[2018-05-18 15:51] VITALS: BMI 47.2
[2018-05-19] MEDS: Clindamycin/D5W 900 MG in Premix Bag 1 BAG IVPB SCH ×4 (01:40→20:05)
[2018-05-19] MEDS: HYDROcodone/Acetaminophen 7.5/325 mg Tablet PO PRN ×5 (01:40→20:05)
[2018-05-19] MEDS: D5 1/2 NS w/20 mEq KCL 1,000 ML IV SCH ×4 (05:38→17:02)
[2018-05-19] MEDS: Vancomycin HCl 1.5 GM in Sodium Chloride 0.9% 250 ML 300 ML IVPB SCH ×2 (05:39→18:52)
[2018-05-19 05:47] LABS: #Eosinphils 0.4 thou/uL (0.0-0.7); #Lymphocytes 1.6 thou/uL (1.20-3.40); #Monocytes 0.8 thou/uL (0.11-0.59); #Neutrophils 7.1 thou/uL (1.40-6.50); %Basophils 0.1 % (0.0-1.0); %Eosinophils 4.4 % (0.0-10.0); %Lymphocytes 16.2 % (21.0-51.0); %Monocytes 7.7 % (0.0-10.0); %Neutrophils 71.5 % (42.0-75.0); Hemoglobin 10.7 g/dL (12.0-16.0); Mean Corpuscular HGB CONC 32.8 g/dL (32.0-36.0); Mean Corpuscular Hemoglobin 28.2 pg (27.0-31.0); Mean Corpuscular Volume 85.8 fL (78.0-98.0); Mean Platelet Volume 7.8 fL (7.4-10.4); Platelet Count 269 thou/uL (130-400); RBC Distribution Width 13.9 % (11.5-14.5); Red Blood Cell (RBC) Count 3.78 mill/uL (4.20-5.40)
[2018-05-19 06:11] LABS: Anion Gap 11 mmol/L (10-20); BUN (Urea Nitrogen) 5 mg/dL (7.0-18.7); Calc. Creatinine Clearance 235 mL/min (70-130); Calcium 8.6 mg/dL (7.8-10.44); Carbon Dioxide 27 mmol/L (22-29); Chloride 103 mmol/L (98-107); Estimated GFR-MDRD Greater than 90; Glucose 99 mg/dL (70-105); Potassium 3.9 mmol/L (3.5-5.1); Sodium 137 mmol/L (136-145)
[2018-05-19] MEDS: Polyethylene Glycol 3350 17 GM Packet PO SCH (08:26)
[2018-05-19] MEDS: Chlorhexidine Gluconate 15 ML UDCUP SSP SCH ×2 (13:18→20:05)
--- NOTE | 2018-05-19 13:54 | PRG ---
DATE OF SERVICE: 05/19/2018 SUBJECTIVE: The patient looks much better this morning. She is awake, alert, eating a liquid diet. OBJECTIVE: VITAL SIGNS: Temperature 98.2, pulse 80, respirations 16, pulse ox 96, and blood pressure 120/85. HEENT: Face and neck with markedly decreased swelling. She is even smiling this morning. HEART: Regular rate and rhythm. LUNGS: Clear. LABORATORY DATA: White count 10.0 and H and H 10 and 32. Electrolytes normal. Creatinine 0.62 and BUN 5. ASSESSMENT: 1. Postop day #5 status post I and D of the neck. 2. Neck abscess. 3. Blood cultures negative. PLAN: 1. Continue IV antibiotics. 2. The patient is getting closer to discharge. Plan to discharge home probably on clindamycin or per Dr. Mccarty and associates. Job ID: [id number]
[2018-05-19 18:25] LABS: Vancomycin, Trough 20.5 ug/mL
[2018-05-19] MEDS: Vancomycin HCl 1.25 GM in Sodium Chloride 0.9% 250 ML 250 ML IVPB SCH (21:44)
[2018-05-20] MEDS: Morphine 4 MG/ML VIAL SLOW IVP PRN (01:49)
[2018-05-20] MEDS: Clindamycin/D5W 900 MG in Premix Bag 1 BAG IVPB SCH ×3 (01:49→10:01)
[2018-05-20] MEDS: D5 1/2 NS w/20 mEq KCL 1,000 ML IV SCH ×2 (04:37→08:14)
[2018-05-20] MEDS: HYDROcodone/Acetaminophen 7.5/325 mg Tablet PO PRN ×2 (04:40)
[2018-05-20] MEDS: Chlorhexidine Gluconate 15 ML UDCUP SSP SCH ×2 (08:14→20:09)
[2018-05-20] MEDS: Polyethylene Glycol 3350 17 GM Packet PO SCH (08:14)
--- NOTE | 2018-05-20 09:01 | PQF ---
CLINICAL DOCUMENTATION IMPROVEMENT CLARIFICATION FORM: ICD-10 Updated PLEASE DO AN ADDENDUM TO THE PROGRESS NOTE WITH ANY DOCUMENTATION UPDATES OR ADDITIONS AND CARRY THROUGH TO DC SUMMARY. THANK YOU. DATE: 05/20/18 ATTN: DR. REEVES Please exercise your independent, professional judgment in responding to the clarification form. Clinical indicators are provided on the bottom of this form for your review Please check appropriate box(s) to clarify if the following diagnosis has been ruled in or ruled out: SEPSIS [ ] Ruled in diagnosis [ ] Continue to treat [ ] Resolved [ ] Ruled out diagnosis [ ] Cannot rule out diagnosis [ ] Other diagnosis [ ] Unable to determine In addition, please specify: Present on Admission (POA): [ ] Yes [ ] No [ ] Unable to determine For continuity of documentation, please document condition throughout progress notes and discharge summary. Thank You. CLINICAL INDICATORS - SIGNS / SYMPTOMS / LABS ER NOTE: "SEPSIS" OP NOTE (ORAL SURGERY): "ADMITTED FOR SEPSIS" BP 92/63 PULSE 125 RR 28 TEMP 103.1 WBC 22.7 BANDS 39 RISKS: ORAL ABSCESSES TREATMENT: IV CLINDAMYCIN (ER) IV VANCOMYCIN (ER) IV FLUIDS (ER) ENT CONSULT ORAL SURGERY CONSULT IMCU MONITORING URINE AND BLOOD CULTURES BACTERIAL CULTURES OF NECK ABSCESS EXTRACTION OF TEETH I&D OF ORAL ABSCESSES (This form is maintained as a part of the permanent medical record) 2014 [employer]. All Rights Reserved [email or web address] Office: [phone] [facility]
[2018-05-20] MEDS: Vancomycin HCl 1.25 GM in Sodium Chloride 0.9% 250 ML 250 ML IVPB SCH (10:27)
[2018-05-20] MEDS ORDERED: Clindamycin 150 MG CAP PO SCH ×2 (11:00→15:00)
--- NOTE | 2018-05-20 12:09 | PRG ---
DATE OF SERVICE: 05/20/2018 SUBJECTIVE: The patient continues to improve slowly. She is still in moderate amount of pain. Drain is still present in her neck. She is tolerating liquids, but minimal solids. OBJECTIVE: VITAL SIGNS: Temperature 98.0, pulse 81, respirations 16, pulse ox 94, and blood pressure 92/61. NECK: Still with firmness, but markedly decreased swelling. Speech continues to improve significantly. HEART: Regular rate and rhythm. LUNGS: Clear. ABDOMEN: Soft. LABORATORY DATA: None. ASSESSMENT: 1. Postop day #6, status post I and D of the neck. 2. Neck abscess. 3. Blood cultures negative. Abscess cultures show normal oral moises. PLAN: The patient is getting closer to discharge. She still requires close followup. Discharge will be per Dr. Mccarty. Job ID: [id number]
[2018-05-20] MEDS: Clindamycin 150 MG CAP PO SCH (20:09)
--- NOTE | 2018-05-21 09:53 | PQF ---
CLINICAL DOCUMENTATION IMPROVEMENT CLARIFICATION FORM: ICD-10 Updated PLEASE DO AN ADDENDUM TO THE PROGRESS NOTE WITH ANY DOCUMENTATION UPDATES OR ADDITIONS AND CARRY THROUGH TO DC SUMMARY. THANK YOU. DATE: 05/15/18 ATTN : DR. REEVES Please exercise your independent, professional judgment in responding to the clarification form. Clinical indicators are provided on the bottom of this form for your review Please check appropriate box(s) to clarify if the following diagnosis has been ruled in or ruled out: SEPSIS [ ] Ruled in diagnosis [ ] Continue to treat [ ] Resolved [ ] Ruled out diagnosis [ ] Cannot rule out diagnosis [ ] Other diagnosis [ ] Unable to determine In addition, please specify: Present on Admission (POA): [ ] Yes [ ] No [ ] Unable to determine For continuity of documentation, please document condition throughout progress notes and discharge summary. Thank You. CLINICAL INDICATORS - SIGNS / SYMPTOMS / LABS ER NOTE: "SEPSIS" OP NOTE (ORAL SURGERY): "ADMITTED FOR SEPSIS" BP 92/63 PULSE 125 RR 28 TEMP 103.1 WBC 22.7 BANDS 39 RISKS: ORAL ABSCESSES TREATMENT: IV CLINDAMYCIN (ER) IV VANCOMYCIN (ER) IV FLUIDS (ER) ENT CONSULT ORAL SURGERY CONSULT IMCU MONITORING URINE AND BLOOD CULTURES BACTERIAL CULTURES OF NECK ABSCESS EXTRACTION OF TEETH I&D OF ORAL ABSCESSES (This form is maintained as a part of the permanent medical record) 2014 [email or web address]. All Rights Reserved [email or web address] Office: [phone] [facility]
[2018-05-21] MEDS: Chlorhexidine Gluconate 15 ML UDCUP SSP SCH ×2 (10:09→20:05)
[2018-05-21] MEDS: Clindamycin 150 MG CAP PO SCH ×3 (10:09→20:04)
[2018-05-21] MEDS: Polyethylene Glycol 3350 17 GM Packet PO SCH (10:10)
--- NOTE | 2018-05-21 10:51 | PRG ---
DATE OF SERVICE: 05/21/2018 SUBJECTIVE: The patient continues to progress well. This morning, she is complaining of being hungry. She is ready for a regular diet. OBJECTIVE: VITAL SIGNS: Temperature 98.2, pulse 78, respirations 16, pulse ox 95, and blood pressure 103/71. HEART: Regular rate and rhythm. LUNGS: Clear. NECK: Continues to improve. Less swelling even than yesterday. Still there was some purulent drainage. ABDOMEN: Soft. ASSESSMENT: 1. Postop day #7, status post I and D of the neck. 2. Neck abscess, continues to improve. 3. Respiratory distress/airway obstruction, resolved. 4. Sepsis, resolving. PLAN: 1. Regular diet. 2. The patient is getting closer to discharge. Continue present plan. Job ID: [id number]
--- NOTE | 2018-05-21 18:26 | PRG ---
DATE OF SERVICE: 05/21/2018 SUBJECTIVE: No acute 24-hour events. The patient is voiding, ambulating, and tolerating a soft diet. OBJECTIVE: The patient's vital signs have been stable for the last 3 days. She has been afebrile. Overall, opening is excellent, much improved. Extraction sockets are clean, dry, and intact. She has markedly decreased swelling today; however, she does still have some moderate amount of purulent discharge from the right neck wound. The area in the right neck is starting to soften up quite a bit. Cranial nerves 2 through 12 are intact. ASSESSMENT: The patient appears to be improving. PLAN: I will remove the drain tonight. We will plan on patient hopefully for discharge tomorrow. We would like to send home on clindamycin and Levaquin for one week. Please call if you have any questions. Job ID: [id number]
[2018-05-22 07:37] VITALS: BP 103/70; TEMP 98
[2018-05-22] MEDS: Polyethylene Glycol 3350 17 GM Packet PO SCH (08:44)
[2018-05-22] MEDS: Clindamycin 150 MG CAP PO SCH (08:45)
[2018-05-22] MEDS: Chlorhexidine Gluconate 15 ML UDCUP SSP SCH (08:49)
--- NOTE | 2018-05-23 01:15 | DIS ---
DATE OF ADMISSION: 05/14/2018 DATE OF DISCHARGE: 05/22/2018 DISCHARGE DIAGNOSES: 1. Neck abscess. 2. Sepsis. 3. Airway obstruction/respiratory distress, resolved. 4. Status post incision and drainage. DISCHARGE MEDICATIONS: 1. Clindamycin 450 mg one p.o. t.i.d. for 10 days. 2. Levaquin 500 mg one a day for additional 7 days. BRIEF HISTORY: This is a 33-year-old [place] female, G2, P2, doing well until 1 to 2 days prior to admission when her neck began swelling rapidly. It came to the point where she was having difficulty breathing. She developed fever and chills. She presented to the emergency room, where Dr. Mccarty was immediately called for evaluation. HOSPITAL COURSE: The patient was immediately started on antibiotics. Dr. Mccarty performed the incision and drainage and extensive purulent material was noted. She had immediate relief. Dr. Mccarty also needed to extract four additional teeth. The patient had extensive dental decay. Over her hospital stay, her neck swelling has decreased significantly. Her left-sided neck swelling has resolved nearly completely. She still has a prominence of her right side of her neck. She has been afebrile for the past 24 to 36 hours on oral clindamycin and Levaquin. She continues to have purulent drainage. She will be discharged today. She has been instructed to shower twice daily and continue to massage her neck. She now can eat without difficulty. Her pain is significantly decreased. She has not required any pain medicine for the past 24 hours. She will be discharged with additional 7 to 10 days of clindamycin and Levaquin. Job ID: [id number]
== END 2018-05-22 12:34 | disposition home or self-care (01) | DRG 854 ==
LOC: ERS 05:46 → ERHOLD 09:30 → IMCU/EMU 14:23 → T4-B 05-15 18:00
PROVIDERS: ADMIT Family Medicine; ATTEND Family Medicine
PROC: 0W950ZZ Drainage of Lower Jaw, Open Approach (ICD-10-PCS; principal; 2018-05-14)
PROC: 0CDXXZ1 Extraction of Lower Tooth, Multiple, External Approach (ICD-10-PCS; 2018-05-14)
DX: A41.9 Sepsis, unspecified organism (principal); K12.2 Cellulitis and abscess of mouth; J98.8 Other specified respiratory disorders
CPT/HCPCS: 36415; 70491; 71045; 80048; 80053; 80202; 81003; 81015; 81025; 83605; 85025; 87040; 87070; 87077; 87086; 87205; 96361; 96365; 96366; 96375; J0131; J1100; J1885; J1956; J2001; J2250; J2270; J2405; J2704; J3010; J3370; J3490; J7050; S0028